=== PATIENT | female | born 1990 | race Caucasian/White ===

== ENCOUNTER 2019-03-10 15:47 | Inpatient (IN) | payer BC ==
[~2019-03-10] VITALS: Ht 160 cm; Wt 78.1 kg
[2019-03-10] MEDS: D5%-LACTATED RINGERS 1,000 ML IV SCH ×2 (15:58→23:58)
[2019-03-10] MEDS ORDERED: OXYTOCIN 30U/ 0.9% NaCL 500ML 500 ML IV ONE (15:58)
[2019-03-10] MEDS ORDERED: ONDANSETRON 2MG/ML, 2ML IVPush PRN (16:00)
[2019-03-10] MEDS ORDERED: SODIUM CITRATE/CITRIC ACID 15 ML UDC PO PRN (16:00)
[2019-03-10] MEDS ORDERED: FENTANYL PF 100 MCG/2ML IVPush PRN (16:00)
[2019-03-10] MEDS ORDERED: METOCLOPRAMIDE 5 MG/ML, 2ML IVPush PRN (16:00)
[2019-03-10] MEDS ORDERED: FENTANYL PF 100 MCG/2ML IV PRN (16:00)
[2019-03-10] MEDS ORDERED: TERBUTALINE 1 MG/ML, 1ML IVPush PRN (16:00)
[2019-03-10] MEDS ORDERED: FENTANYL PF 100 MCG/2ML ONE (16:02)
[2019-03-10] MEDS ORDERED: LIDOCAINE 1%, 20ML ONE (16:02)
[2019-03-10] MEDS ORDERED: MISOPROSTOL 200 MCG TABLET ONE (16:02)
[2019-03-10] MEDS ORDERED: NEWBORN KIT ONE ×2 (16:02→16:31)
[2019-03-10] MEDS ORDERED: OXYTOCIN 30U/ 0.9% NaCL 500ML 500 ML ONE ×2 (16:03→20:07)
[2019-03-10] MEDS: LACTATED RINGERS 1,000 ML IV SCH ×2 (16:05→23:31)
[2019-03-10 16:33] LABS: BASOPHILS # (AUTO) 0.05 x10^3/uL (0-0.1); BASOPHILS % (AUTO) 0 % (0-1); EOSINOPHILS % (AUTO) 0 % (1-7); LYMPHOCYTES % (AUTO) 11 % (22-44); MD NO; MEAN CORPUSCULAR HGB CONC 33.3 g/dL (32.4-35.8); MEAN CORPUSCULAR VOLUME 83.9 fL (80-100); MONOCYTES # (AUTO) 0.93 x10^3/uL (0.2-0.8); MONOCYTES % (AUTO) 7 % (2-9); NEUTROPHILS % (AUTO) 81 % (42-75); PLATELET COUNT 308 x10^3/uL (130-400); RED BLOOD COUNT 4.49 x10^6/uL (3.82-5.3); RED CELL DISTRIBUTION WIDTH 14.2 % (9.6-15.2)
[2019-03-10] MEDS ORDERED: BUPIVACAINE 0.25% ONE (16:38)
[2019-03-10] MEDS ORDERED: FENTANYL/BUPIV./NS/PF 250 ML EPIDCONT ONE (16:39)
[2019-03-10] MEDS ORDERED: LACTATED RINGERS 1,000 ML IV SCH (17:53)
[2019-03-10] MEDS ORDERED: FENTANYL/BUPIV./NS/PF 250 ML EPIDCONT SCH (17:53)
[2019-03-10] MEDS ORDERED: LACTATED RINGERS 1,000 ML IVBOLUS PRN (18:00)
[2019-03-10] MEDS ORDERED: EPHEDRINE 50 MG/ML, 1ML IVPush PRN (18:00)
[2019-03-10] MEDS ORDERED: OXYTOCIN 30U/ 0.9% NaCL 500ML 500 ML IV PRN (19:44)
[2019-03-10 19:47] VITALS: BP 123/56
[2019-03-10] MEDS ORDERED: CALCIUM CARBONATE 500 MG TAB.CHEW PO PRN (20:00)
[2019-03-11] MEDS ORDERED: IBUPROFEN 600 MG TABLET ONE (01:10)
[2019-03-11] MEDS: IBUPROFEN 600 MG TABLET PO PRN ×3 (01:15→22:14)
[2019-03-11] MEDS: OXYTOCIN 30U/ 0.9% NaCL 500ML 500 ML IV SCH ×3 (01:15→21:22)
[2019-03-11] MEDS ORDERED: MISOPROSTOL 200 MCG TABLET PR PRN (01:30)
[2019-03-11] MEDS ORDERED: OXYcodone IR 5MG TABLET PO PRN (01:30)
[2019-03-11] MEDS ORDERED: ONDANSETRON 2MG/ML, 2ML IV PRN (01:30)
[2019-03-11] MEDS ORDERED: ACETAMINOPHEN 325 MG TABLET PO PRN (01:30)
[2019-03-11 03:00] VITALS: BP 104/63
[2019-03-11] MEDS: DOCUSATE 100 MG CAPSULE PO PRN ×2 (08:09→22:14)
[2019-03-11] MEDS: PRENATAL VIT/IRON/FA 1 EACH TABLET PO SCH (08:09)
[2019-03-11 08:30] VITALS: BP 105/71
[2019-03-11 09:07] LABS: MEAN CORPUSCULAR HEMOGLOBIN 27.8 pg (27.0-34.8); MEAN CORPUSCULAR HGB CONC 32.8 g/dL (32.4-35.8); MEAN CORPUSCULAR VOLUME 84.8 fL (80-100); PLATELET COUNT 273 x10^3/uL (130-400); RED BLOOD COUNT 3.99 x10^6/uL (3.82-5.3); RED CELL DISTRIBUTION WIDTH 14.4 % (9.6-15.2)
[2019-03-11 09:23] LABS: BASOPHILS # (AUTO) 0.19 x10^3/uL (0-0.1); BASOPHILS % (AUTO) 1 % (0-1); EOSINOPHILS # (AUTO) 0.01 x10^3/uL (0-0.4); EOSINOPHILS % (AUTO) 0 % (1-7); LYMPHOCYTES # (AUTO) 1.77 x10^3/uL (1-3.4); LYMPHOCYTES % (AUTO) 10 % (22-44); MD SCAN; MONOCYTES # (AUTO) 1.54 x10^3/uL (0.2-0.8); MONOCYTES % (AUTO) 9 % (2-9); NEUTROPHILS # (AUTO) 13.67 x10^3/uL (1.8-6.8); NEUTROPHILS % (AUTO) 80 % (42-75)
[2019-03-11 12:00] VITALS: BP 123/80
[2019-03-11] MEDS: OXYcodone/APAP 5/325MG TABLET PO PRN ×3 (12:29→22:14)
[2019-03-11 16:30] VITALS: BP 112/76
[2019-03-11 19:10] VITALS: BP 119/76
[2019-03-11 23:55] VITALS: BP 117/69
[2019-03-12] MEDS: OXYcodone/APAP 5/325MG TABLET PO PRN ×2 (04:38→10:55)
[2019-03-12] MEDS: IBUPROFEN 600 MG TABLET PO PRN ×2 (04:38→10:55)
[2019-03-12] MEDS: PRENATAL VIT/IRON/FA 1 EACH TABLET PO SCH (10:55)
[2019-03-12] MEDS: DOCUSATE 100 MG CAPSULE PO PRN (10:55)
[2019-03-12] MEDS ORDERED: DOCU-131 PO (11:58)
[2019-03-12] MEDS ORDERED: OXYC-302 PO (11:58)
[2019-03-12] MEDS ORDERED: IBUP-1222 PO (11:58)
== END 2019-03-12 15:00 | disposition home or self-care (01) | DRG 807 ==
LOC: LDOP 15:47 → LDIP 15:59 → 2NW 03-11 02:47
PROVIDERS: ADMIT Obstetrics & Gynecology; ATTEND Obstetrics & Gynecology
PROC: 10E0XZZ Delivery of Products of Conception, External Approach (ICD-10-PCS; principal; 2019-03-11)
PROC: 0KQM0ZZ Repair Perineum Muscle, Open Approach (ICD-10-PCS; 2019-03-11)
PROC: 3E0R3BZ Introduction of Anesthetic Agent into Spinal Canal, Percutaneous Approach (ICD-10-PCS; 2019-03-11)
PROC: 00HU33Z Insertion of Infusion Device into Spinal Canal, Percutaneous Approach (ICD-10-PCS; 2019-03-11)
PROC: 3E033VJ Introduction of Other Hormone into Peripheral Vein, Percutaneous Approach (ICD-10-PCS; 2019-03-11)
PROC: 10907ZC Drainage of Amniotic Fluid, Therapeutic from Products of Conception, Via Natural or Artificial Opening (ICD-10-PCS; 2019-03-11)
DX: O48.0 Post-term pregnancy (principal); Z37.0 Single live birth; Z3A.40 40 weeks gestation of pregnancy; Z88.0 Allergy status to penicillin; O70.1 Second degree perineal laceration during delivery
CPT/HCPCS: 36415; 85025; 86850; 86900; G0378; J2590; J7120